=== PATIENT | male | born 1985 | race Caucasian/White ===

== ENCOUNTER 2020-06-14 09:09 | Emergency (ER) | payer OTHER ==
[~2020-06-14] VITALS: Ht 167.6 cm; Wt 71.7 kg
[2020-06-14 09:19] VITALS: BP 133/85; Ht 167.6 cm; Wt 71.7 kg
== END 2020-06-14 10:30 | disposition left against medical advice (07) ==
LOC: ED 09:09
DX: H57.11 Ocular pain, right eye (principal); Z88.5 Allergy status to narcotic agent